=== PATIENT | male | born 1965 | race Caucasian/White ===

== ENCOUNTER → 2017-06-17 | Outpatient (CLI) | payer BC | END | disposition home or self-care (01) | LOC: NUC 10:00 | DX: R93.7 Abnormal findings on diagnostic imaging of other parts of musculoskeletal system (principal); M19.031 Primary osteoarthritis, right wrist; S63.501A Unspecified sprain of right wrist, initial encounter; M25.1 Fistula of joint | CPT/HCPCS: 78306; A9503 ==